=== PATIENT | female | born 1995 | race Caucasian/White ===

== ENCOUNTER → 2021-05-02 | Outpatient (CLI) | payer BC, OTHER | LOC: HEART 5 08:30 | DX: R42 Dizziness and giddiness (principal) ==

== ENCOUNTER → 2021-05-24 | Outpatient (CLI) | payer OTHER, BC | LOC: HEART 5 10:00 | DX: R42 Dizziness and giddiness (principal); I08.1 Rheumatic disorders of both mitral and tricuspid valves | CPT/HCPCS: 93306 ==

== ENCOUNTER → 2021-08-28 | Outpatient (CLI) | payer OTHER | LOC: EMI 09:16 | DX: R42 Dizziness and giddiness (principal); G43.109 Migraine with aura, not intractable, without status migrainosus; M54.16 Radiculopathy, lumbar region | CPT/HCPCS: 70551 ==